=== PATIENT | male | born 1975 | race Caucasian/White ===

== ENCOUNTER 2016-09-22 22:39 | Emergency (ER) | payer OTHER ==
[~2016-09-22] VITALS: Ht 177.8 cm; Wt 109.6 kg
[2016-09-23 01:28] VITALS: BP 137/86
== END 2016-09-23 01:30 | disposition home or self-care (01) ==
LOC: TRA 22:39
DX: S06.0X0A Concussion without loss of consciousness, initial encounter (principal); S01.01XA Laceration without foreign body of scalp, initial encounter; M54.2 Cervicalgia; W20.8XXA Other cause of strike by thrown, projected or falling object, initial encounter; Y93.59 Activity, other involving other sports and athletics played individually
CPT/HCPCS: 70450; 72125; 99281; 99285

== ENCOUNTER 2016-10-04 13:00 | Emergency (ER) | payer OTHER ==
[~2016-10-04] VITALS: Ht 177.8 cm; Wt 107.9 kg
[2016-10-04 14:41] LABS: HEMATOCRIT 42.4 % (38.0-50.0); MCH 31.6 PG (29.0-34.0); MCHC 35.1 G/DL (30.0-36.0); MCV 89.8 FL (86-99); MEAN PLAT.VOLUME 8.7 uM^3 (9.0-12.4); PLATELET COUNT 284 K/uL (156-360); RBC DIS.WIDTH-CV 11.8 % (11.8-14.6); RBC DIS.WIDTH-SD 38.2 % (39-53); RED BLOOD COUNT 4.72 M/uL (4.00-5.50); WHITE BLOOD COUNT 6.9 K/uL (4.1-10.2)
[2016-10-04 15:16] LABS: CHLORIDE 104 mEq/L (99-109); POTASSIUM 4.1 mEq/L (3.7-5.4); SODIUM 140 mEq/L (136-147)
[2016-10-04 15:17] LABS: GLUCOSE 89 mg/dL (70-99)
[2016-10-04 15:19] LABS: ANION GAP 9 MEQ/L (2-14)
[2016-10-04 15:21] LABS: GFR ESTIMATE (CALCULATED) > 59 mL/min/
[2016-10-04 15:22] LABS: UREA NITROGEN (BUN) 17 mg/dL (9-23)
[2016-10-04] MEDS ORDERED: BACTRIM,SEPT1 TABLET PO (15:49)
[2016-10-04 16:21] VITALS: BP 112/80
== END 2016-10-04 16:23 | disposition home or self-care (01) ==
LOC: EME 13:00
PROVIDERS: Physician Assistant
DX: T81.4XXA Infection following a procedure, initial encounter (principal); S01.01XD Laceration without foreign body of scalp, subsequent encounter; L08.9 Local infection of the skin and subcutaneous tissue, unspecified; F17.200 Nicotine dependence, unspecified, uncomplicated; Z88.0 Allergy status to penicillin
CPT/HCPCS: 80048; 83605; 85027; 87070; 87075; 87077; 87186; 87205; 99281; 99285; J0696; J7050